=== PATIENT | female | born 1925 | race Caucasian/White ===

== ENCOUNTER 2016-06-19 07:52 | Inpatient (IN) | payer OTHER ==
[~2016-06-19] VITALS: Ht 157.5 cm; Wt 49.0 kg
[~2016-06-19 07:52] MED LIST: ALKA-SELTZER E500 MG PO; ALPHAGAN P100 DROP/1 BOTH EYES; ANTIVERT25 MG PO; ASPIR-LOW81 M1 PO; AVAPRO150 MG PO; DAILY VALUE1 EACH PO; EXFORGE HCT 5-1 EACH PO; HYDROCHLOROTHIA25 MG PO; LUMIGAN2.5 ML BOTH EYES; PROAIR HFA8.5 GM IH; RANITIDINE HCL300 MG PO; VALIUM2 MG PO; XALATAN2.5 ML BOTH EYES; ZOFRAN ODT4 MG PO
[2016-06-19 09:20] LABS: INTER. NORMALIZED RATIO 1.1; PROTHROMBIN TIME 11.3 (9.2-11.2); PTT 26.1 (25-32)
[2016-06-19 09:30] LABS: TROP-I INTERPRETATION NEGATIVE; TROPONIN-I < 0.01 ng/mL (0.0-0.30)
[2016-06-19 09:34] LABS: CK-MB 1.1 ng/mL (0.0-4.9)
[2016-06-19 09:51] LABS: ALKALINE PHOSPHATASE 86 IU/L (3-129); ANION GAP 8 MEQ/L (2-14); CHLORIDE 103 MEQ/L (99-109); GFR ESTIMATE (CALCULATED) > 59 mL/min/; GLUCOSE 100 mg/dL (70-99); POTASSIUM 3.9 MEQ/L (3.7-5.4); SAMPLE HEMOLYSIS CHECK 0; SAMPLE ICTERIC CHECK 0; SAMPLE LIPEMIA CHECK 0; SODIUM 140 MEQ/L (136-147); TOTAL BILIRUBIN 0.3 MG/DL (0.0-1.0); UREA NITROGEN (BUN) 30 mg/dL (9-23)
[2016-06-19 10:07] LABS: EOSINOPHIL (%) 0.4 % (0-5); EOSINOPHIL COUNT 0.1 K/uL (0-0.3); HEMATOCRIT 36.1 % (36.0-46.0); IMMATURE GRANULOCYTE (%) 0.5 % (0.0-0.7); IMMATURE GRANULOCYTE COUNT 0.1 K/uL; INSTRUMENT ABS NEUTROPHIL CT 12.9 K/uL; LYMPHOCYTE COUNT 1.2 K/uL (1.0-2.8); MCH 27.5 PG (29.0-34.0); MCHC 31.6 G/DL (30.0-36.0); MCV 87.2 FL (83-99); MEAN PLAT.VOLUME 11.1 uM^3 (9.5-12.4); MONOCYTE COUNT 0.9 K/uL (0-0.8); NEUTROPHIL (%) 84.7 % (45-76); NEUTROPHIL COUNT 12.9 K/uL (1.8-6.4); PLATELET COUNT 564 K/uL (156-360); RBC DIS.WIDTH-CV 13.2 % (11.8-14.6); RBC DIS.WIDTH-SD 42.3 % (39-53); RED BLOOD COUNT 4.14 M/uL (3.80-5.20); WHITE BLOOD COUNT 15.2 K/uL (4.1-10.2)
[2016-06-19 10:09] LABS: CREATINE KINASE 17 IU/L (1-294); TOTAL CK 17 IU/L (1-294)
[2016-06-19 17:11] VITALS: BP 120/64
[2016-06-19 19:50] VITALS: BP 130/56
[2016-06-20 00:26] VITALS: BP 122/64
[2016-06-20 04:14] VITALS: BP 114/76
[2016-06-20 07:30] LABS: HEMATOCRIT 32.3 % (36.0-46.0); MCH 27.4 PG (29.0-34.0); MCHC 31.3 G/DL (30.0-36.0); MCV 87.5 FL (83-99); MEAN PLAT.VOLUME 10.3 uM^3 (9.5-12.4); PLATELET COUNT 462 K/uL (156-360); RBC DIS.WIDTH-CV 13.3 % (11.8-14.6); RBC DIS.WIDTH-SD 42.7 % (39-53); RED BLOOD COUNT 3.69 M/uL (3.80-5.20); WHITE BLOOD COUNT 8.2 K/uL (4.1-10.2)
[2016-06-20 07:34] LABS: INTER. NORMALIZED RATIO 1.1; PROTHROMBIN TIME 11.4 (9.2-11.2); PTT 30.6 (25-32)
[2016-06-20 07:52] LABS: ANION GAP 7 MEQ/L (2-14); CHLORIDE 104 MEQ/L (99-109); GFR ESTIMATE (CALCULATED) > 59 mL/min/; POTASSIUM 4.4 MEQ/L (3.7-5.4); SAMPLE HEMOLYSIS CHECK 0; SAMPLE ICTERIC CHECK 0; SAMPLE LIPEMIA CHECK 0; SODIUM 140 MEQ/L (136-147); UREA NITROGEN (BUN) 22 mg/dL (9-23)
[2016-06-20 07:53] LABS: GLUCOSE 151 mg/dL (70-99)
[2016-06-20 07:54] VITALS: BP 140/60
[2016-06-20 08:16] LABS: INTERNAL CONTROL VALID? YES
[2016-06-20 10:54] VITALS: BP 150/70
[2016-06-20 20:00] VITALS: BP 122/56
[2016-06-21] VITALS (7 sets, daily range): BP systolic 118–144; BP diastolic 48–101
[2016-06-21] MEDS ORDERED: ASPIR-LOW81 MG PO (12:31)
[2016-06-21] MEDS ORDERED: VALSARTAN-HCTZ1 EAC1 PO (12:35)
[2016-06-21] MEDS ORDERED: SYMBICORT60 INHALA1 IH (12:36)
[2016-06-21] MEDS ORDERED: MECLIZINE HCL25 MG PO (12:37)
[2016-06-21] MEDS ORDERED: PANTOPRAZOLE SO40 MG PO (12:38)
[2016-06-22] VITALS (7 sets, daily range): BP systolic 130–164; BP diastolic 68–78
[2016-06-23 03:55] VITALS: BP 167/79
[2016-06-23 06:52] LABS: HEMATOCRIT 32.1 % (36.0-46.0); MCH 27.2 PG (29.0-34.0); MCHC 31.2 G/DL (30.0-36.0); MCV 87.5 FL (83-99); MEAN PLAT.VOLUME 10.3 uM^3 (9.5-12.4); PLATELET COUNT 464 K/uL (156-360); RBC DIS.WIDTH-CV 13.2 % (11.8-14.6); RBC DIS.WIDTH-SD 42.7 % (39-53); RED BLOOD COUNT 3.67 M/uL (3.80-5.20); WHITE BLOOD COUNT 9.9 K/uL (4.1-10.2)
[2016-06-23 07:19] LABS: ANION GAP 3 MEQ/L (2-14); CHLORIDE 107 MEQ/L (99-109); GFR ESTIMATE (CALCULATED) > 59 mL/min/; POTASSIUM 4.3 MEQ/L (3.7-5.4); SAMPLE HEMOLYSIS CHECK 0; SAMPLE ICTERIC CHECK 0; SAMPLE LIPEMIA CHECK 0; SODIUM 140 MEQ/L (136-147); UREA NITROGEN (BUN) 16 mg/dL (9-23)
[2016-06-23 07:21] LABS: GLUCOSE 99 mg/dL (70-99)
[2016-06-23 07:31] VITALS: BP 170/89
[2016-06-23 11:17] VITALS: BP 183/79
[2016-06-23 20:15] VITALS: BP 168/79
[2016-06-24] VITALS: BP 189/86
[2016-06-24 04:00] VITALS: BP 167/72
[2016-06-24] MEDS ORDERED: LINEZOLID600 MG PO (07:29)
[2016-06-24] MEDS ORDERED: DIOVAN HCT 11 TABLE1 PO (07:30)
[2016-06-24 07:59] VITALS: BP 184/83
[2016-06-24 12:07] VITALS: BP 162/70
[2016-06-24 17:16] VITALS: BP 172/74
[2016-06-24 20:13] VITALS: BP 147/67
[2016-06-25] VITALS: BP 152/68
[2016-06-25 04:00] VITALS: BP 139/73
[2016-06-25 07:58] VITALS: BP 180/69
[2016-06-25 12:15] VITALS: BP 128/67
== END 2016-06-25 15:00 | DRG 190 ==
LOC: EME 07:52 → EDOF 14:31 → 5SOUTH 14:31 → EDOF 14:53 → 5SOUTH 16:32
PROVIDERS: Emergency Medicine; Internal Medicine; Internal Medicine Pulmonary Disease; Physician Assistant Medical
DX: J44.0 Chronic obstructive pulmonary disease with (acute) lower respiratory infection (principal); J85.0 Gangrene and necrosis of lung; B95.61 Methicillin susceptible Staphylococcus aureus infection as the cause of diseases classified elsewhere; I15.2 Hypertension secondary to endocrine disorders; R04.2 Hemoptysis; I48.0 Paroxysmal atrial fibrillation; J47.9 Bronchiectasis, uncomplicated; R63.4 Abnormal weight loss; R31.9 Hematuria, unspecified; R59.0 Localized enlarged lymph nodes; K44.9 Diaphragmatic hernia without obstruction or gangrene; D63.8 Anemia in other chronic diseases classified elsewhere; R42 Dizziness and giddiness; K59.00 Constipation, unspecified
CPT/HCPCS: 71010; 71020; 71275; 76001; 80048; 80053; 81003; 82550; 82553; 84484; 85025; 85027; 85610; 85730; 87040; 87070; 87077; 87102; 87116; 87147; 87186; 87205; 87206; 87278; 87449; 88108; 88305; 93005; 94640; 94640 76; 94760; 94799; 99202; 99281; 99284; C9113; J0690; J1644; J1956; J2250; J2310; J2543; J2920; J2930; J3010; J7030; J7050